=== PATIENT | female | born 1935 | race Caucasian/White ===

== ENCOUNTER 2016-10-06 22:10 | Observation (INO) | payer OTHER ==
[~2016-10-06] VITALS: Ht 154.9 cm; Wt 56.7 kg
--- NOTE | ~2016-10-06 | 2DMMODE ---
[facility] [address] [place] [address] 2 D/M-MODE ECHOCARDIOGRAM Name: ELLEANN J Room #: 435-P ADM IN M.R.#: [id number] Admission: 10/07/16 Attend Phys: Nando Angulo Discharge: Date of : 31 Date of Service: 10/07/16 1359 Report #: [id number] THIS REPORT FOR: //name// APPROVED REPORT Study performed: 10/07/2016 09:23:22 EXAM: Comprehensive 2D, Doppler, and color-flow Echocardiogram Patient Location: Bedside Room #: 435 Other Information Study Quality: Technically DifficultTechnically Limited Technically limited study due to severe lung disease. Indications Congestive Heart Failure COPD 2D Dimensions RVDd: 27.48 mm LVEF(%): 61.02 (>50%) IVSd: 13.35 (7-11mm) LVOT Diam: 15.97 (18-24mm) LVDd: 37.31 mm PWd: 12.95 (7-11mm) LVDs: 25.36 (25-40mm) Aortic Root: 31.28 mm IVC: 18.00 mm Hodgson's LVEF: 61.02 % Volumes Left Atrial Volume (Systole) Single Plane 4CH: 26.21 mL Single Plane 2CH: 22.72 mL LA ESV Index: 16.00 mL/m2 Aortic Valve AoV Peak Natalio.: 1.00 m/s AO Peak Gr.: 4.01 mmHg LVOT Max P.32 mmHg LVOT Max V: 1.04 m/s ROBERT Vmax: 2.08 cm2 Mitral Valve E/A Ratio: 0.5 MV Decel. Time: 273.51 ms MV E Max Natalio.: 0.45 m/s [facility] [place] [address] [place] [address] 2 D/M-MODE ECHOCARDIOGRAM Name: LEANN GALLEGOS Room #: 435-P [facility].#: [id number] Admission: 10/07/16 Attend Phys: Nando Angulo Discharge: Date of : 31 Date of Service: 10/07/16 1359 Report #: [id number] MV A Natalio.: 0.87 m/s MV PHT: 79.32 ms IVRT: 173.01 ms Pulmonary Valve PV Peak Natalio.: 0.81 m/s PV Peak Gr.: 2.60 mmHg Pulmonary Vein P Vein S: 0.68 m/s P Vein A: 0.39 m/s P Vein D: 0.40 m/s P Vein A Dur.: 106.1 msec P Vein S/D Ratio: 1.70 Tricuspid Valve RAP Estimate: 5.00 mmHg Left Ventricle Left ventricle is grossly normal size. There is normal LV segmental wall motion. Mild concentric left ventricular hypertrophy. The left ventricular systolic function is normal. The left ventricular ejection fraction is within the normal range. LVEF is 60%. Mild diastolic dysfunction is present (impaired relaxation pattern). Right Ventricle The right ventricle is normal size. The right ventricular systolic function is normal. Atria The left atrium size is normal. The right atrium size is normal. Aortic Valve The aortic valve is mildly scerotic Mild aortic regurgitation. There is no aortic valvular stenosis. Mitral Valve The mitral valve is normal in structure. There is no mitral valve regurgitation noted. No evidence of mitral valve stenosis. Tricuspid Valve The tricuspid valve is normal in structure. There is no tricuspid valve regurgitation noted. Unable to assess PA pressure. Pulmonic Valve Pulmonic valve is not well visualized. [facility] [address] [place] [address] 2 D/M-MODE ECHOCARDIOGRAM Name: ELLEANN Yolanda Room #: 435-P [facility] IN ..#: [id number] Admission: 10/07/16 Attend Phys: Nando Angulo Discharge: Date of : 31 Date of Service: 10/07/16 1359 Report #: [id number] Great Vessels The aortic root is normal in size. IVC is normal in size and collapses >50% with inspiration. Pericardium There is no pericardial effusion. <Conclusion> The left ventricular systolic function is normal. There is normal LV segmental wall motion. LVEF is 60%. Mild diastolic dysfunction is present (impaired relaxation pattern). The aortic valve is mildly scerotic, no stenosis. Mild aortic regurgitation. The mitral valve is normal in structure. No mitral valve regurgitation noted. Pulmonary artery pressure could not be reliably ascertained There is no pericardial effusion. <ELECTRONICALLY SIGNED> By: Mohit Hall MD, [facility] 10/07/16 1359 1359 1359 Mohit Hall MD, FAC /INF
--- NOTE | ~2016-10-06 | EKG ---
[place] [address] [address] [place] [address] ELECTROCARDIOGRAM REPORT Name: LANECRUZITO CASTILLOEMILY Guerreor Room #: 435-P ADM IN M.R.#: [id number] Admission: 10/07/16 Attend Phys: Nando Leyva Discharge: Date of : 31 Report #: [id number] THIS REPORT FOR: //name// [facility] ED Test Date: 2016-10-06 Test Time: 22:31:59 Pat Name: LEANN GALLEGOS Department: Room: [facility] Gender: F [facility] Family [facility] Specialist: MZOOK : 1935 Requested By: Rios Escamilla Order Number: [id number] MD: Mohit Hall Measurements Intervals [place] Rate: 70 P: 69 GA: 148 QRS: -15 QRSD: 89 T: 58 QT: 440 QTc: 475 Interpretive Statements Sinus rhythm Borderline left axis deviation Probable anterior infarct, age indeterminate Compared to ECG 08/14/2012 16:22:35 Septal Q waves are more prominent Electronically Signed On 10-07-2016 8:46:16 CDT by Mohit Hall [email or web address] <ELECTRONICALLY SIGNED> By: Mohit Hall MD, [facility] 10/07/16 0846 30 30 Mohit Hall MD, [facility] /EPI
[~2016-10-06 22:10] MED LIST: ASPIRIN81 M2 PO; BUDESONIDE0.5 MG/2 M INH; CALCIUM 500 +1 EAC5 PO; CARVEDILOL6.25 MG PO; CHANTIX1 MG PO; COZAAR100 MG PO; CRESTOR20 MG PO; CRESTOR5 MG PO; DOXYCYCLINE 10100 M1 PO; ENABLEX15 MG PO; FISH OIL 1,0001 EAC5 PO; FOSAMAX 70 MG T70 M1 PO; NORVASC 2.5 MG2.5 M1 PO; PAXIL10 MG PO; PLAVIX 75 MG TA75 M1 PO; PREDNISONE 10 M10 M1 PO; SPIRIVA INH
[2016-10-06 22:17] VITALS: BP 242/104
[2016-10-06 22:48] LABS: ABSOLUTE NEUTROPHILS 2.9 thou/uL (1.4-8.2); BASOPHILS 1.2 % (0.0-2.0); EOSINOPHILS 7.7 % (0.0-3.0); HEMATOCRIT 41.1 % (37.0-47.0); HEMOGLOBIN 13.6 gm/dL (12.0-15.0); LYMPHOCYTES 31.5 % (24.0-44.0); MCH 31.3 pg (26.0-34.0); MCV 94.6 fL (80.0-100.0); MONOCYTES 10.9 % (1.0-8.0); PLATELET COUNT 144 thou/uL (150-400); POLYS 48.7 % (36.0-66.0); RBC 4.35 mil/uL (4.20-5.00); RDW 13.3 % (10.5-14.5)
[2016-10-06 22:52] LABS: MANUAL DIFF NO
[2016-10-06 22:54] LABS: ANION GAP 5 mmol/L (7-16); BUN 27 mg/dL (7-18); CALCIUM 9.8 mg/dL (8.5-10.1); CHLORIDE 105 mmol/L (98-107); CO2 31 mmol/L (21-32); CREATININE 1.1 mg/dL (0.6-1.0); GLUCOSE 103 mg/dL (74-106); SODIUM 141 mmol/L (136-145)
[2016-10-06 23:06] LABS: NT-PRO BRAIN NAT PEPTIDE 1317 pg/mL (<300); TROPONIN-I < 0.04 ng/mL (<0.04-0.07)
[2016-10-07 02:26] VITALS: BP 184/70
[2016-10-07] MEDS ORDERED: ALBUTEROL2.5 MG/31 INH (02:52)
[2016-10-07 03:04] VITALS: BP 184/70
[2016-10-07 04:30] VITALS: BP 149/58
[2016-10-07 05:27] LABS: HEMATOCRIT 39.5 % (37.0-47.0); HEMOGLOBIN 13.2 gm/dL (12.0-15.0); MCH 31.6 pg (26.0-34.0); MCHC 33.4 g/dL (28.0-37.0); MCV 94.6 fL (80.0-100.0); RBC 4.17 mil/uL (4.20-5.00); RDW 13.4 % (10.5-14.5); WBC 5.1 thou/uL (4.0-11.0)
[2016-10-07 05:43] LABS: CALCIUM 9.3 mg/dL (8.5-10.1); POTASSIUM 3.8 mmol/L (3.5-5.1)
[2016-10-07 08:00] VITALS: BP 130/62
[2016-10-07 16:00] VITALS: BP 120/61
[2016-10-07 19:19] VITALS: BP 137/64
[2016-10-08 04:14] VITALS: BP 137/60
[2016-10-08 07:45] VITALS: BP 137/68
[2016-10-08 15:54] VITALS: BP 130/75
[2016-10-08 19:49] VITALS: BP 136/66
[2016-10-09 04:00] VITALS: BP 109/69
[2016-10-09 07:20] VITALS: BP 134/83
[2016-10-09] MEDS ORDERED: NORVASC5 MG PO (13:58)
[2016-10-09] MEDS ORDERED: LASIX 20 MG TAB20 MG PO (14:04)
[2016-10-09 14:28] VITALS: BP 134/83
== END 2016-10-09 16:45 | disposition home or self-care (01) ==
LOC: ER 22:10 → 4S 10-07 01:24 → EROBS 10-07 01:24 → 4S 10-07 01:24
PROVIDERS: Emergency Medicine; Nurse Practitioner Family
DX: I50.9 Heart failure, unspecified (principal); I10 Essential (primary) hypertension; J44.9 Chronic obstructive pulmonary disease, unspecified; Z87.891 Personal history of nicotine dependence
CPT/HCPCS: 10100

== ENCOUNTER 2017-09-25 17:59 | Emergency (ER) | payer OTHER ==
[~2017-09-25] VITALS: Ht 157.5 cm; Wt 55.3 kg
[~2017-09-25 17:59] MED LIST changes: -PREDNISONE 20 M20 MG PO; -ZPAK PO
[2017-09-25 18:58] LABS: ABSOLUTE NEUTROPHILS 4.2 thou/uL (1.4-8.2); BASOPHILS 0.8 % (0.0-2.0); EOSINOPHILS 9.6 % (0.0-3.0); LYMPHOCYTES 23.7 % (24.0-44.0); MCH 32.1 pg (26.0-34.0); MCHC 33.3 g/dL (28.0-37.0); MCV 96.4 fL (80.0-100.0); PLATELET COUNT 184 thou/uL (150-400); POLYS 56.9 % (36.0-66.0); RBC 4.67 mil/uL (4.20-5.00); RDW 14.1 % (10.5-14.5); WBC 7.3 thou/uL (4.0-11.0)
[2017-09-25 19:02] LABS: CALCIUM 10.2 mg/dL (8.5-10.1); CREATININE 1.1 mg/dL (0.6-1.0); POTASSIUM 4.3 mmol/L (3.5-5.1)
[2017-09-25] MEDS ORDERED: PREDNISONE 20 M20 MG PO (20:50)
[2017-09-25] MEDS ORDERED: ZPAK PO (20:50)
== END 2017-09-25 21:21 | disposition home or self-care (01) ==
LOC: ER 17:59
PROVIDERS: Emergency Medicine
DX: J44.1 Chronic obstructive pulmonary disease with (acute) exacerbation (principal); I10 Essential (primary) hypertension; Z96.611 Presence of right artificial shoulder joint; F17.210 Nicotine dependence, cigarettes, uncomplicated; Z88.2 Allergy status to sulfonamides; Z88.8 Allergy status to other drugs, medicaments and biological substances

== ENCOUNTER → 2017-09-25 | Outpatient (CLI) | payer OTHER ==
[~2017-09-25] MED LIST changes: +ALBUTEROL2.5 MG/31 INH; +LASIX 20 MG TAB20 MG PO; +NORVASC5 MG PO; +PREDNISONE 20 M20 MG PO; +ZPAK PO
[2017-09-25 14:15] LABS: HEMATOCRIT 44.6 % (37.0-47.0); HEMOGLOBIN 14.5 gm/dL (12.0-15.0); MCH 31.5 pg (26.0-34.0); MCHC 32.6 g/dL (28.0-37.0); MCV 96.8 fL (80.0-100.0); RBC 4.61 mil/uL (4.20-5.00); RDW 14.4 % (10.5-14.5); WBC 6.9 thou/uL (4.0-11.0)
[2017-09-25 14:22] LABS: ANION GAP 3 mmol/L (7-16); BUN 17 mg/dL (7-18); CALCIUM 9.9 mg/dL (8.5-10.1); CHLORIDE 104 mmol/L (98-107); CO2 30 mmol/L (21-32); CREATININE 1.1 mg/dL (0.6-1.0); GLUCOSE 113 mg/dL (74-106); POTASSIUM 4.4 mmol/L (3.5-5.1); SODIUM 137 mmol/L (136-145)
[2017-09-25 14:30] LABS: ALBUMIN 3.9 g/dL (3.4-5.0); MAGNESIUM 2.2 mg/dL (1.8-2.4); SGOT 30 U/L (15-37); SGPT 19 U/L (30-65); TOTAL BILIRUBIN 0.5 mg/dL (<0.1-1.0); TOTAL PROTEIN 7.5 g/dL (6.4-8.2); TROPONIN-I < 0.04 ng/mL (<0.06)
== END ==
LOC: RAD 13:35
PROVIDERS: Internal Medicine Pulmonary Disease
DX: M41.85 Other forms of scoliosis, thoracolumbar region (principal); J98.4 Other disorders of lung; J92.9 Pleural plaque without asbestos

== ENCOUNTER → 2017-09-26 | Outpatient (CLI) | payer OTHER ==
[~2017-09-26] MED LIST changes: +PREDNISONE 20 M20 MG PO; +ZPAK PO
== END ==
LOC: ULTRA 13:22
DX: M79.89 Other specified soft tissue disorders (principal); M79.661 Pain in right lower leg; M79.662 Pain in left lower leg; R06.02 Shortness of breath; R60.9 Edema, unspecified

== ENCOUNTER → 2018-03-04 | Outpatient (CLI) | payer OTHER ==
[2018-03-04 09:59] LABS: CREATININE 1.4 mg/dL (0.6-1.0)
== END ==
LOC: CAT 09:13
PROVIDERS: Nuclear Medicine Nuclear Cardiology
DX: Z01.812 Encounter for preprocedural laboratory examination (principal); I71.4 Abdominal aortic aneurysm, without rupture; N28.1 Cyst of kidney, acquired; I77.1 Stricture of artery; J44.9 Chronic obstructive pulmonary disease, unspecified; G47.34 Idiopathic sleep related nonobstructive alveolar hypoventilation; G47.33 Obstructive sleep apnea (adult) (pediatric); M47.816 Spondylosis without myelopathy or radiculopathy, lumbar region; M43.16 Spondylolisthesis, lumbar region; R06.02 Shortness of breath; Z90.710 Acquired absence of both cervix and uterus